=== PATIENT | male | born 1975 | race Hispanic/Latino ===

== ENCOUNTER 2022-01-03 05:18 | Emergency (ER) | payer BC ==
[2022-01-03] MEDS ORDERED: diphenhydrAMINE 50 MG/ML VIAL ONE (05:42)
[2022-01-03] MEDS ORDERED: methylPREDNISolone Sod Succ/PF 125 MG/2 ML VIAL ONE (05:42)
== END 2022-01-03 06:44 | disposition home or self-care (01) ==
LOC: CSHERS 05:18
DX: T78.40XA Allergy, unspecified, initial encounter (principal)
CPT/HCPCS: 96374; 96375; J1200; J2930

== ENCOUNTER 2022-01-20 16:21 | Emergency (ER) | payer BC ==
[2022-01-20] MEDS ORDERED: Dexamethasone 4 mg/ml Vial ONE (17:33)
[2022-01-20 17:45] LABS: #Monocytes 1.3 10x3/uL (0.0-1.1); %Basophils 0.1 % (0.0-2.0); %Eosinophils 0.1 % (0.0-6.0); %Lymphocytes 14.9 % (18.0-47.0); %Monocytes 9.5 % (0.0-10.0); %Neutrophils 74.7 % (40.0-75.0); Hemoglobin 15.6 g/dL (13.5-17.5); Mean Corpuscular HGB CONC 33.9 g/dL (32.0-36.0); Mean Corpuscular Hemoglobin 29.2 pg (27.0-33.0); Mean Platelet Volume 9.1 fl (7.4-10.4); Platelet Count 283 10x3/uL (150-450); Red Blood Cell (RBC) Count 5.35 10x6/uL (4.32-5.72); White Blood Cell (WBC) Count 13.4 10x3/uL (3.5-10.5)
[2022-01-20 17:56] LABS: ALT (SGPT) 47 U/L (8-55); AST (SGOT) 24 U/L (5-34); Albumin 4.1 g/dL (3.5-5.0); Alkaline Phosphatase 68 U/L (40-110); Anion Gap 14 mmol/L (10-20); BUN (Urea Nitrogen) 19 mg/dL (8.9-20.6); Bilirubin, Total 0.5 mg/dL (0.2-1.2); Calc. Creatinine Clearance 0 mL/min (70-130); Calcium 9.5 mg/dL (7.8-10.44); Carbon Dioxide 24 mmol/L (22-29); Chloride 104 mmol/L (98-107); Estimated GFR 54; Glucose 88 mg/dL (70-105); Potassium 4.2 mmol/L (3.5-5.1); Protein, Total 7.1 g/dL (6.0-8.3); Sodium 138 mmol/L (136-145)
== END 2022-01-20 18:13 | disposition home or self-care (01) ==
LOC: CSHERS 16:21
DX: L50.8 Other urticaria (principal)
CPT/HCPCS: 36415; 80053; 85025; 96374; J1100

== ENCOUNTER 2022-04-21 13:17 | Observation (INO) | payer BC ==
[~2022-04-21 13:17] MED LIST: Iopamidol 300 61% 100 ML VIAL FS ONE
[2022-04-21] MEDS ORDERED: Morphine 4 MG/ML VIAL ONE (13:45)
[2022-04-21] MEDS ORDERED: Ondansetron PF 4 MG/2 ML Vial ONE (13:45)
[2022-04-21] MEDS ORDERED: Ketorolac Tromethamine 30 MG/ML VIAL ONE (13:45)
[2022-04-21] MEDS ORDERED: HYDROmorphone 0.5 MG/0.5 ML SYRINGE ONE (14:18)
[2022-04-21 14:30] LABS: #Monocytes 0.8 10x3/uL (0.0-1.1); %Basophils 0.3 % (0.0-2.0); %Monocytes 8.7 % (0.0-10.0); %Neutrophils 64.6 % (40.0-75.0); Hemoglobin 15.6 g/dL (13.5-17.5); Mean Corpuscular HGB CONC 34.5 g/dL (32.0-36.0); Mean Platelet Volume 8.9 fl (7.4-10.4); Platelet Count 369 10x3/uL (150-450); RBC Distribution Width 13.3 % (11.5-14.5); Red Blood Cell (RBC) Count 5.38 10x6/uL (4.32-5.72); White Blood Cell (WBC) Count 9.3 10x3/uL (3.5-10.5)
[2022-04-21 14:48] LABS: ALT (SGPT) 55 U/L (8-55); AST (SGOT) 34 U/L (5-34); Alkaline Phosphatase 83 U/L (40-110); Anion Gap 18 mmol/L (10-20); BUN (Urea Nitrogen) 12 mg/dL (8.9-20.6); Bilirubin, Total 0.5 mg/dL (0.2-1.2); Calc. Creatinine Clearance 0 mL/min (70-130); Calcium 9.8 mg/dL (7.8-10.44); Carbon Dioxide 20 mmol/L (22-29); Chloride 105 mmol/L (98-107); Estimated GFR 64; Globulin 3.2 g/dL (2.4-3.5); Glucose 116 mg/dL (70-105); Lipase 270 U/L (8-78); Potassium 3.7 mmol/L (3.5-5.1); Protein, Total 7.2 g/dL (6.0-8.3); Sodium 139 mmol/L (136-145)
[2022-04-21 16:03] LABS: Bilirubin 1+ (Negative); Blood, Urine Negative (Negative); Clarity Clear (Clear); Glucose, Urine (Dipstick) Normal (Negative); Ketone, Urine 5 mg/dL (Negative); Leukocyte 25 (Negative); Nitrite Negative (Negative); Protein, Urine (Dipstick) 30 mg/dl (Neg-Trace); Specific Gravity, Urine 1.015 (1.005-1.030); Urobilinogen Normal mg/dL (Less than 2)
[2022-04-21 16:24] LABS: Bacteria/HPF 1+ HPF (None Seen); RBC/HPF 0-3 HPF (0-3); Squamous Epithelial 0-3 HPF (0-3); WBC/HPF 0-3 HPF (0-3)
[2022-04-21 16:25] LABS: Mucous/LPF 1+ LPF (<2+)
[2022-04-21] MEDS ORDERED: Sodium Chloride 0.9% 1,000 ML IV SCH (16:30)
[2022-04-21] MEDS ORDERED: Ondansetron PF 4 MG/2 ML Vial IVP PRN (16:30)
[2022-04-21] MEDS ORDERED: Bisacodyl 10 MG SUPP PR PRN (16:30)
[2022-04-21] MEDS ORDERED: Morphine 2 MG/ML VIAL SLOW IVP PRN (16:33)
[2022-04-21] MEDS ORDERED: Morphine 4 MG/ML VIAL SLOW IVP PRN (16:33)
[2022-04-21 17:29] LABS: Amphetamine Not Detected (NotDetected); Barbiturates Screen Not Detected (NotDetected); Benzodiazepine Screen Not Detected (NotDetected); Cocaine Metabolite Screen Not Detected (NotDetected); Methadone Not Detected (NotDetected); Methamphetamine Not Detected (NotDetected); Opiate Screen Detected (NotDetected); Oxycodone Screen Not Detected (NotDetected); Phencyclidine (PCP) Not Detected (NotDetected); THC/Cannabinoid Screen Not Detected (NotDetected); Tricyclic Screen Detected (NotDetected)
[2022-04-21] MEDS ORDERED: methylPREDNISolone Sod Succ/PF 40 MG in Sodium Chloride 0.9% 250 ML 250 ML IVPB SCH (18:45)
[2022-04-21] MEDS ORDERED: EPINEPHrine 1 mg/ml MDV (1ml Charge) IM SCH (18:45)
[2022-04-21] MEDS ORDERED: diphenhydrAMINE 50 MG/ML VIAL IVP PRN (19:03)
[2022-04-21] MEDS ORDERED: Loratadine 10 MG TAB PO SCH (19:15)
[2022-04-21 19:28] VITALS: BMI 29.8
[2022-04-21] MEDS: Lactated Ringer's 1,000 ML IV SCH (20:58)
[2022-04-21] MEDS: methylPREDNISolone Sod Succ 40 MG VIAL IVP SCH (21:00)
[2022-04-21] MEDS: Famotidine/PF 20 mg/2ml Vial SLOW IVP SCH (21:00)
[2022-04-21] MEDS ORDERED: FLU VACC QS2022-23(6MOS UP)/PF 60 MCG/0.5 ML SYRINGE IM ONE (23:15)
[2022-04-22] MEDS: methylPREDNISolone Sod Succ 40 MG VIAL IVP SCH ×2 (02:25→09:39)
[2022-04-22] MEDS: Lactated Ringer's 1,000 ML IV SCH ×2 (02:25→05:15)
[2022-04-22 05:38] LABS: Mean Corpuscular HGB CONC 34.1 g/dL (32.0-36.0); Mean Corpuscular Hemoglobin 28.7 pg (27.0-33.0); Mean Corpuscular Volume 84.3 fl (81.2-95.1); Mean Platelet Volume 8.6 fl (7.4-10.4); Platelet Count 322 10x3/uL (150-450); RBC Distribution Width 13.2 % (11.5-14.5); Red Blood Cell (RBC) Count 5.22 10x6/uL (4.32-5.72); White Blood Cell (WBC) Count 7.5 10x3/uL (3.5-10.5)
[2022-04-22 05:56] LABS: ALT (SGPT) 47 U/L (8-55); AST (SGOT) 26 U/L (5-34); Albumin 3.6 g/dL (3.5-5.0); Alkaline Phosphatase 73 U/L (40-110); Anion Gap 12 mmol/L (10-20); BUN (Urea Nitrogen) 9 mg/dL (8.9-20.6); Bilirubin, Total 0.5 mg/dL (0.2-1.2); Calc. Creatinine Clearance 127 mL/min (70-130); Calcium 9.1 mg/dL (7.8-10.44); Carbon Dioxide 22 mmol/L (22-29); Chloride 110 mmol/L (98-107); Estimated GFR 90; Globulin 2.8 g/dL (2.4-3.5); Glucose 142 mg/dL (70-105); Lipase 15 U/L (8-78); Protein, Total 6.4 g/dL (6.0-8.3); Sodium 139 mmol/L (136-145)
[2022-04-22 06:21] LABS: Band 2 % (5-11); Lymphocytes 8 % (21-51); Monocytes 3 % (0-10); Reactive Lymphocytes 3 % (0-10)
[2022-04-22 06:22] LABS: MDiff Complete? YES; Neutrophil 84 % (42-75); Platelet Morphology Comment Appears Adequate
[2022-04-22] MEDS ORDERED: diphenhydrAMINE 50 MG/ML VIAL IVP SCH (08:30)
[2022-04-22] MEDS ORDERED: OMALIZUMAB 150 MG/ML SC SCH (09:00)
[2022-04-22] MEDS ORDERED: Enoxaparin Sodium 40 MG/0.4 ML SYRINGE SC SCH (09:00)
[2022-04-22] MEDS ORDERED: Pantoprazole 40 MG VIAL IVP SCH (09:00)
[2022-04-22] MEDS: Famotidine/PF 20 mg/2ml Vial SLOW IVP SCH (09:39)
[2022-04-22 12:03] VITALS: BP 114/68; TEMP 98.1
[2022-04-22] MEDS ORDERED: hydrOXYzine 25 MG TAB PO SCH (21:00)
[2022-04-22] MEDS ORDERED: Loratadine 10 MG TAB PO SCH (21:00)
[2022-04-22] MEDS ORDERED: Montelukast Sodium 10 mg Tablet PO SCH (21:00)
[2022-04-22] MEDS ORDERED: Doxepin HCl 25 MG CAP PO SCH (21:00)
== END 2022-04-22 14:10 | disposition home or self-care (01) ==
LOC: CSHERS 13:17 → CSHTELE 15:45
PROVIDERS: ADMIT Family Medicine; ATTEND Family Medicine
DX: R10.84 Generalized abdominal pain (principal); L50.1 Idiopathic urticaria; R79.89 Other specified abnormal findings of blood chemistry; N18.9 Chronic kidney disease, unspecified; Z90.49 Acquired absence of other specified parts of digestive tract; Z98.890 Other specified postprocedural states; Z20.822 Contact with and (suspected) exposure to COVID-19; Z88.6 Allergy status to analgesic agent; Z88.8 Allergy status to other drugs, medicaments and biological substances; Z91.010 Allergy to peanuts
CPT/HCPCS: 36415; 74177; 80053; 80306; 81003; 81015; 83690; 85025; 87086; 93005; 96361; 96372; 96374; 96375; 96376; G0378; J0171; J1170; J1200; J1650; J1885; J2270; J2405; J2920; J7050; J7120; Q9967; S0028; U0003; U0005